=== PATIENT | male | born 1985 | race Caucasian/White ===

== ENCOUNTER 2020-09-11 14:48 | Emergency (ER) | payer OTHER, SELFPAY ==
[2020-09-11 15:10] VITALS: BP 123/81; PULSE 86; RESP 20; TEMP 36.3; O2SAT 98
--- NOTE | 2020-09-11 15:19 | ED.URI ---
HPI - URI/Sore Throat General Chief Complaint: Upper Respiratory Infection Stated Complaint: upper respiratory infection Time Seen by Provider: 09/11/20 15:17 Source: patient and RN notes reviewed Mode of arrival: ambulatory Limitations: no limitations History of Present Illness HPI Narrative: 34-year-old male who presents to [facility] care with complaints of generalized body aches, fevers, cough, nasal congestion for the past 3 days, has known exposure to Covid positive individual. Patient states that he has had a bad headache and fever up to 101.1F. Patient states that he has had generalized body aches and he states fatigue. Patient denies any productive cough or any shortness of breath with no tachypnea or accessory muscle use, lung clear to auscultation with SAO2 98% on room air. Has taken OTC Tylenol or Ibuprofen for his fevers. MD elicited complaint: fever and nasal congestion Pertinent past history: sinusitis Onset (ago): day(s) (3) Consistency: constant Pain scale (0-10): 4 Able to tolerate fluids by mouth: Yes Context: sick contacts Associated symptoms: fever, chills, myalgias, headache, rhinorrhea, nasal congestion and cough Treatments prior to arrival: acetaminophen and ibuprofen Related Data Home Medications Medication Instructions Recorded Confirmed No Home Medications 09/11/20 09/11/20 Review of Systems Review of Systems: Narrative: CONSTITUTIONAL: Positive fever, chills, or sweats. EYES: Denies visual changes, redness, or discharge. ENT: Positive rhinorrhea, congestion,no sore throat, or otalgia. CARDIOVASCULAR: Denies chest pain, palpitations, or edema. RESPIRATORY: positive cough denies dyspnea. GASTROINTESTINAL: Denies abdominal pain, nausea, vomiting, or diarrhea. GENITOURINARY: Denies dysuria or hematuria. SKIN: Denies rash or itching. MUSCULOSKELETAL: Denies back pain, joint pain, positive for body aches NEUROLOGIC: Positive headache,no numbness, or weakness. PSYCHIATRIC: Denies anxiety or depression. 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 There is no relevant family history pertinent to the presenting complaint Exam Narrative: Exam Narrative: GENERAL: Ill-appearing, well-nourished, and in no acute distress. HEAD: Normocephalic, atraumatic. EYES: PERRLA and EOMI. ENT: Nares red with clear rhinorrhea no epistaxis. Mucous membranes moist.TM's normal with good light reflex, throat pink with no tonsil enlargement NECK: Supple.no lymphadenopathy CHEST: Clear to auscultation. No respiratory distress.SAO2 98% HEART: Regular rate and rhythm. No murmur heard. Normal peripheral pulses. ABDOMEN: Soft, nontender, nondistended, normal active bowel sounds. EXTREMITIES: Normal range of motion. No edema.generalized body aches with no SKIN: Warm, dry, no rash. NEURO: No focal deficits. Alert and oriented x3. Course Vital Signs Vital signs: Vital Signs Temperature 36.3 C L 09/11/20 15:10 Pulse Rate 86 09/11/20 15:10 Respiratory Rate 20 09/11/20 15:10 Blood Pressure 123/81 09/11/20 15:10 Pulse Oximetry 98 09/11/20 15:10 Temperature 36.3 C L 09/11/20 15:10 Pulse Rate 86 09/11/20 15:10 Respirator
== END 2020-09-11 15:45 | disposition home or self-care (01) ==
PROVIDERS: Emergency Provider Registered Nurse
DX: U07.1 COVID-19 (principal)
CPT/HCPCS: 87426; 99213; C9803; G0463